=== PATIENT | male | born 1960 | race Caucasian/White ===

== ENCOUNTER 2018-06-12 15:52 | Inpatient (IN) ==
--- NOTE | 2018-06-12 17:36 | Emergency Department Note ---
Disposition Clinical Impression: Hypertensive emergency, Ureteral calculus, left, Elevated troponin, Elevated serum creatinine Disposition: Admitted As Inpatient Condition: Fair Abdominal Pain HPI - General Chief Complaint: ED Abdominal Pain Stated Complaint: Kidney stone left side Time Seen by Provider: 06/12/18 16:47 Source: patient - History of Present Illness HPI Narrative: Resident note found to have no history of present illness. I did see and it independently evaluate the patient. The history of present illness as listed below. My independent attestation follows at the end of this chart. Patient presented today for evaluation of worsening left flank pain. Patient states that he previously been evaluated at outside emergency department and had also been evaluated for stroke as he had complained of sitting epigastric patient having a sudden onset left-sided flank pain followed by numbness paresthesias and weakness. I did do request these records from the outside hospital and the patient was going to be transferred to [facility] for stroke evaluation. Patient symptoms started proximally 3 days ago. He has been known to have a kidney stone. Patient states that the pain has been significantly worse. Patient has had associated nausea. Patient states that his left leg has had intermittent episodes of significant weakness. On exam he is able to raise his foot off the bed but it does have appreciable weakness compared to the right side. The patient does have associated left-sided flank pain with associated left CVA tenderness. No significant fevers or chills. The patient will undergo further evaluation with a CT scan of his head. Last known well would have been prior to his original ED visit. The patient's kidney stone especially with pain worse with muscle movements could be relating to his left- sided weakness. CT of the abdomen and pelvis will be performed to see the potential size location of the stone. Pain Scale: 9 - Related Data Home Medications Medication Instructions Recorded Confirmed Aspirin/Acetaminophen/Caffeine 2 tab PO DAILY PRN 06/12/18 06/12/18 [Excedrin Extra Strength Caplet] Allergies Allergy/AdvReac Type Severity Reaction Status Date / Time ketorolac [From Toradol] Allergy Nausea Verified 06/12/18 16:09 Penicillins Allergy Hives Verified 06/12/18 16:09 sulfamethoxazole AdvReac Anaphylaxis Verified 06/12/18 16:09 [From Bactrim] trimethoprim [From Bactrim] AdvReac Anaphylaxis Verified 06/12/18 16:09 Abdominal Pain PMH - Past Medical History Medical history: Reports: kidney stones Male Surgical History: Reports: orthopedic, other - Social History Smoking status: Current every day smoker Alcohol use: Reports: none Drug use: Reports: none Physical Exam - General Limitations: no limitations General appearance: alert Course Vital Signs Temperature 97.6 F 06/12/18 16:09 Pulse Rate 97 06/12/18 16:09 Respiratory Rate 16 06/12/18 16:09 Blood Pressure 195/114 06/12/18 16:09 O2 Sat by Pulse Oximetry 99 06/12/18 16:09 Temperature 98.2 F 06/13/18 16:48 Pulse Rate 76 06/13/18 16:48 Respiratory Rate 18 06/13/18 16:48 Blood Pressure 150/102 06/13/18 17:39 O2 Sat by Pulse Oximetry 96 06/13/18 16:48 Oxygen Delivery Oxygen Delivery Room Air Abdominal Pain - Lab Data Result diagrams: 06/13/18 03:38 06/13/18 12:21 Lab Results 06/12/18 06/12/18 06/12/18 Range/Units 17:04 17:38 17:38 WBC 9.8 (4.3-11.1) K/mcL RBC 4.68 (4.19-5.50) M/mcL Hgb 15.0 (12.9-16.9) g/dL Hct 42.1 (37.5-50.1) % MCV 90.0 (83.0-100.0) fL MCH 32.1 (28.0-33.3) pg MCHC 35.6 H (31.6-35.5) g/dL RDW 13.6 (11.5-14.5) % Plt Count 314 (140-400) K/mcL MPV 11.0 (9.4-12.4) fL Immature Gran % 0.3 (0-4) % Seg Neutrophils % 62.1 % Lymphocytes % 26.5 % Monocytes % 7.4 % Eosinophils % 2.9 % Basophils % 0.8 % Neutrophils # 6.1 (1.6-8.9) K/mcL Lymphocytes # 2.6 (0.6-4.6) K/mcL Monocytes # 0.7 (0.0-1.3) K/mcL Eosinophils # 0.3 (0.0-0.6) K/mcL Basophils # 0.1 (0.0-0.2) K/mcL Sodium 136 (136-145) mEq/L Potassium 3.0 L (3.5-5.1) mEq/L Chloride 107 (98-107) mEq/L Carbon Dioxide 22 L (23-29) mEq/L BUN 17 (6-20) mg/dL Creatinine 1.42 H (0.70-1.30) mg/dL Est GFR ( Amer) > 60 (> 60) Est GFR (Non-Af Amer) 52 L (> 60) BUN/Creatinine Ratio 12 (6-26) Glucose 105 (70-105) mg/dL Calculated Osmolality 284 (280-300) Calcium 9.2 (8.6-10.3) mg/dL Total Bilirubin 0.4 (0.3-1.0) mg/dL Direct Bilirubin 0.1 (0.0-0.2) mg/dL Indirect Bilirubin 0.3 (0.0-1.2) mg/dL AST 15 (13-39) Units/L ALT 10 (7-52) Units/L Alkaline Phosphatase 75 (34-104) Units/L Troponin I 0.05 H* (< 0.04) ng/mL Serum Total Protein 6.7 (6.4-8.9) g/dL Albumin 3.9 (3.5-5.7) g/dL Globulin 2.8 (2.4-3.5) g/dL Albumin/Globulin Ratio 1.4 (1.1-2.2) Lipase 52 (11-82) Units/L Urine Color Yellow (Yellow) Urine Clarity Clear (Clear) Urine pH 6.0 (5.0-8.0) pH Units Ur Specific [place] 1.011 (1.010-1.025) Urine Protein >=300 H (Neg-Trace) mg/dL Urine Glucose (UA) Normal (Normal) mg/dL Urine Ketones Negative (Negative) mg/dL Urine Blood Small H (Negative) Urine Nitrite Negative (Negative) Urine Bilirubin Negative (Negative) Urine Urobilinogen Normal (Normal) mg/dL Ur Leukocyte Esterase Trace H (Negative) Urine Microscopic RBC 0-3 (0-3) per hpf Urine Microscopic WBC 0-3 (0-3) per hpf Ur Squamous Epith Cells None Seen (None-Few) per lpf Urine Bacteria None Seen (None-Few) per hpf Hyaline Casts None Seen (None-Few) per lpf Ur Culture Indicated? YES A (NO) Attestation Statement - Attestation Attestation: Resident Attestation: I examined this patient and my medical decision making was reviewed with the Resident Physician. I agree with the documented findings, disposition and treatment plan as described except to the extent set forth below. We independently had [id number] contact with the patient. Patient seen and evaluated outside hospital refer to [facility] for possible stroke. Patient states that the physician was unhappy with him but he could not go to the hospital at that time. Patient presents today for further workup and evaluation. Does have a history of kidney stone which at this time does appear to be significantly worse with muscle movements. Patient will undergo further evaluation for possible kidney stone as well as concern for the left-sided leg weakness. On evaluation the patient does have significant amounts pain. Patient is uncomfortable in the bed. He does have left-sided CVA tenderness. Abdomen has left-sided tenderness without significant rebound or guarding. CT scan shows kidney stone on the psoas. Likely explaining his symptoms of weakness. Does not discussed with urology. Patient will be brought in for pain control and further evaluation of kidney stone. See resident note for further details and disposition.
[2018-06-12 17:49] LABS: Bilirubin,Urine Negative (Negative); Blood,Urine Small (Negative); Clarity,Urine Clear (Clear); Color,Urine Yellow (Yellow); Glucose,Urine (UA) Normal (Normal); Ketones,Urine Negative (Negative); Leukocyte Esterase,Urine Trace (Negative); Nitrite,Urine Negative (Negative); Protein,Urine >=300 mg/dL (Neg-Trace); Specific Gravity,Urine 1.011 (1.010-1.025); Urobilinogen,Urine Normal (Normal)
[2018-06-12 18:10] LABS: Bacteria,Urine None Seen per hpf (None-Few); Hyaline Casts,Urine None Seen per lpf (None-Few); RBC,Urine 0-3 per hpf (0-3); Squamous Epithelial Cell,Urine None Seen per lpf (None-Few); WBC,Urine 0-3 per hpf (0-3)
[2018-06-12 18:15] LABS: Alanine Aminotransferase 10 Units/L (7-52); Albumin 3.9 g/dL (3.5-5.7); Albumin/Globulin Ratio 1.4 (1.1-2.2); Alkaline Phosphatase 75 Units/L (34-104); Aspartate Amino Transferase 15 Units/L (13-39); BUN/Creatinine Ratio 12 (6-26); Bilirubin,Direct 0.1 mg/dL (0.0-0.2); Bilirubin,Indirect 0.3 mg/dL (0.0-1.2); Bilirubin,Total 0.4 mg/dL (0.3-1.0); Blood Urea Nitrogen 17 mg/dL (6-20); Calcium 9.2 mg/dL (8.6-10.3); Carbon Dioxide 22 mEq/L (23-29); Chloride 107 mEq/L (98-107); Globulin 2.8 g/dL (2.4-3.5); Glucose 105 mg/dL (70-105); Lipase 52 Units/L (11-82); Osmolality,Calculated 284 (280-300); Sodium 136 mEq/L (136-145); Total Protein 6.7 g/dL (6.4-8.9); eGFR For Non-African Americans 52 (> 60)
[2018-06-12 18:20] LABS: Troponin I 0.05 ng/mL (< 0.04)
[2018-06-12] MEDS ORDERED: *HR* Labetalol 20 MG/4 ML SYRINGE IVP ONE (19:07)
[2018-06-12 19:12] LABS: Basophils # 0.1 K/mcL (0.0-0.2); Basophils % 0.8 %; Eosinophils # 0.3 K/mcL (0.0-0.6); Eosinophils % 2.9 %; Hematocrit 42.1 % (37.5-50.1); Immature Granulocytes % 0.3 % (0-4); Lymphocytes # 2.6 K/mcL (0.6-4.6); Lymphocytes % 26.5 %; Mean Corpuscular HGB Conc 35.6 g/dL (31.6-35.5); Mean Corpuscular Hemoglobin 32.1 pg (28.0-33.3); Monocytes # 0.7 K/mcL (0.0-1.3); Monocytes % 7.4 %; Neutrophils # 6.1 K/mcL (1.6-8.9); Platelet Count 314 K/mcL (140-400); Red Blood Count 4.68 M/mcL (4.19-5.50); Red Cell Distribution Width 13.6 % (11.5-14.5); Segmented Neutrophils % 62.1 %
[2018-06-12] MEDS ORDERED: amLODIPine 5 MG TABLET PO STA (19:45)
--- NOTE | 2018-06-12 19:47 | Emergency Department Note ---
Disposition Clinical Impression: Hypertensive emergency, Ureteral calculus, left, Elevated troponin, Elevated serum creatinine Disposition: Admitted As Inpatient Condition: Fair Referrals: NONE,PCP [Primary Care Provider] - Forms: ED Satisfaction Letter, Work/School Release Time of Disposition: 19:47 Abdominal Pain HPI - General Chief Complaint: ED Abdominal Pain Stated Complaint: Kidney stone left side Time Seen by Provider: 06/12/18 16:47 Source: patient Nursing Notes Reviewed: Yes Vital Signs Reviewed: Yes - History of Present Illness Pain Scale: 9 - Related Data Home Medications Medication Instructions Recorded Confirmed Aspirin/Acetaminophen/Caffeine 2 tab PO DAILY PRN 06/12/18 06/12/18 [Excedrin Extra Strength Caplet] Allergies Allergy/AdvReac Type Severity Reaction Status Date / Time ketorolac [From Toradol] Allergy Nausea Verified 06/12/18 16:09 Penicillins Allergy Hives Verified 06/12/18 16:09 sulfamethoxazole AdvReac Anaphylaxis Verified 06/12/18 16:09 [From Bactrim] trimethoprim [From Bactrim] AdvReac Anaphylaxis Verified 06/12/18 16:09 Abdominal Pain PMH - Past Medical History Medical history: Reports: kidney stones Male Surgical History: Reports: orthopedic, other - Social History Smoking status: Current every day smoker Alcohol use: Reports: none Drug use: Reports: none Physical Exam CONSTITUTIONAL: A&O X 3, in no apparent distress. Hypertensive on exam in the 220's/140's. HEAD: Normocephalic; atraumatic EYES: PERRL, no scleral icterus NOSE: The nose is normal in appearance without rhinorrhea NECK: No JVD or distended neck veins RESP: Normal chest excursion with respiration; breath sounds clear and equal bilaterally; no wheezes, rhonchi, or rales CARD: Regular rhythm, without murmurs, rub or gallop ABD: Non-distended; non-tender, soft, without rigidity, rebound or guarding,no pulsatile mass CHEST: No pain with palpation SKIN: Normal for age and race; warm and dry without diaphoresis ; no apparent lesions EXTREMITIES: Pulses are 2 plus and equal times 4 extremities, no peripheral edema or calf muscle pain NEUROLOGICAL: Patient is alert and oriented times three. Cranial nerves III- XII are intact. Sensory and motor functions are intact. Strength is 5/5 for flexion and extension in all 4 extremities. Patellar DTRS are equal and intact. Finger to nose testing is equal and normal bilaterally. Patient has 5/ 5 strength in the LLE. Pain with flexion of the hip against resistance. Ambulates in the room with pain that is reproduced in his abdomen. - General Limitations: no limitations General appearance: alert Course Course Narrative: Given the patient's lack of primary care and elevated blood pressure and multiple complaints at this time plan is to evaluate him for any end organ dysfunction related to his hypertension. He also undergo evaluation for kidney stone given his left sided abdominal pain. He was recently seen at an outside facility in which he underwent evaluation for his left lower extremity pain. The patient pain was reproduced with with flexion of hip against resistance. Considering this pain refers to abdomen concern is an irritating stone over the iliopsoas causing this pain, neuro-exam is otherwise intact. - Reevaluation(s) Reevaluation #1: Patient's lab work returned. His EKG was nonischemic but did show LVH. Did have an elevation of his creatinine as well as a mild elevation of troponin. His CT scan showed obstructing left-sided proximal 6.5 mm stone. I discussed the patient's case with the urologist on-call Dr. Taylor. He states he will see the patient in the morning. Discussed patient's case with the hospitalist on- call. Patient will be given 10 mg of his Labetalol IV as well as pain and nausea control. BP will be rechecked in 30 minutes and if not improving will give oral norvasc per hospitalist request. Time: 20:02 Vital Signs Temperature 97.6 F 06/12/18 16:09 Pulse Rate 97 06/12/18 16:09 Respiratory Rate 16 06/12/18 16:09 Blood Pressure 195/114 06/12/18 16:09 O2 Sat by Pulse Oximetry 99 06/12/18 16:09 Temperature 97.6 F 06/12/18 16:09 Pulse Rate 76 06/12/18 18:04 Respiratory Rate 20 06/12/18 18:04 Blood Pressure 194/120 06/12/18 18:04 O2 Sat by Pulse Oximetry 99 06/12/18 18:04 Oxygen Delivery Oxygen Delivery Room Air Abdominal Pain - Medical Records Medical records reviewed: Yes I reviewed the patient's medical records. - Lab Data Lab results reviewed: Yes I reviewed the patient's lab results. Result diagrams: 06/12/18 17:38 06/12/18 17:38 Lab Results 06/12/18 06/12/18 06/12/18 Range/Units 17:04 17:38 17:38 WBC 9.8 (4.3-11.1) K/mcL RBC 4.68 (4.19-5.50) M/mcL Hgb 15.0 (12.9-16.9) g/dL Hct 42.1 (37.5-50.1) % MCV 90.0 (83.0-100.0) fL MCH 32.1 (28.0-33.3) pg MCHC 35.6 H (31.6-35.5) g/dL RDW 13.6 (11.5-14.5) % Plt Count 314 (140-400) K/mcL MPV 11.0 (9.4-12.4) fL Immature Gran % 0.3 (0-4) % Seg Neutrophils % 62.1 % Lymphocytes % 26.5 % Monocytes % 7.4 % Eosinophils % 2.9 % Basophils % 0.8 % Neutrophils # 6.1 (1.6-8.9) K/mcL Lymphocytes # 2.6 (0.6-4.6) K/mcL Monocytes # 0.7 (0.0-1.3) K/mcL Eosinophils # 0.3 (0.0-0.6) K/mcL Basophils # 0.1 (0.0-0.2) K/mcL Sodium 136 (136-145) mEq/L Potassium 3.0 L (3.5-5.1) mEq/L Chloride 107 (98-107) mEq/L Carbon Dioxide 22 L (23-29) mEq/L BUN 17 (6-20) mg/dL Creatinine 1.42 H (0.70-1.30) mg/dL Est GFR ( Amer) > 60 (> 60) Est GFR (Non-Af Amer) 52 L (> 60) BUN/Creatinine Ratio 12 (6-26) Glucose 105 (70-105) mg/dL Calculated Osmolality 284 (280-300) Calcium 9.2 (8.6-10.3) mg/dL Total Bilirubin 0.4 (0.3-1.0) mg/dL Direct Bilirubin 0.1 (0.0-0.2) mg/dL Indirect Bilirubin 0.3 (0.0-1.2) mg/dL AST 15 (13-39) Units/L ALT 10 (7-52) Units/L Alkaline Phosphatase 75 (34-104) Units/L Troponin I 0.05 H* (< 0.04) ng/mL Serum Total Protein 6.7 (6.4-8.9) g/dL Albumin 3.9 (3.5-5.7) g/dL Globulin 2.8 (2.4-3.5) g/dL Albumin/Globulin Ratio 1.4 (1.1-2.2) Lipase 52 (11-82) Units/L Urine Color Yellow (Yellow) Urine Clarity Clear (Clear) Urine pH 6.0 (5.0-8.0) pH Units Ur Specific [place] 1.011 (1.010-1.025) Urine Protein >=300 H (Neg-Trace) mg/dL Urine Glucose (UA) Normal (Normal) mg/dL Urine Ketones Negative (Negative) mg/dL Urine Blood Small H (Negative) Urine Nitrite Negative (Negative) Urine Bilirubin Negative (Negative) Urine Urobilinogen Normal (Normal) mg/dL Ur Leukocyte Esterase Trace H (Negative) Urine Microscopic RBC 0-3 (0-3) per hpf Urine Microscopic WBC 0-3 (0-3) per hpf Ur Squamous Epith Cells None Seen (None-Few) per lpf Urine Bacteria None Seen (None-Few) per hpf Hyaline Casts None Seen (None-Few) per lpf Ur Culture Indicated? YES A (NO) - Radiology Data Radiology results reviewed: Yes I reviewed the patient's radiology results. Abdomen/Pelvis CT 06/12/18 17:07 IMPRESSION: 6.0 x 7.5 mm obstructing calculus within the proximal left ureter. Multiple additional bilateral nephrolithiasis. Borderline prominent appendix without surrounding inflammatory change to suggest acute appendicitis. Mild generalized bladder wall thickening. Correlation with urinalysis suggested. Diverticulosis without evidence for acute diverticulitis. D/ / Jeremiah Whalen MD / Jeremiah Whalen MD Interpreting Provider: Jeremiah Whalen MD Chest X-Ray 06/12/18 17:07 IMPRESSION: No acute process. D/ / Roberta Vargas MD / Roberta Vargas MD Interpreting Provider: Roberta Vargas MD Head CT 06/12/18 17:07 IMPRESSION: No acute intracranial abnormality. Chronic bilateral basal ganglia lacunar infarctions are identified. No obvious loss of jimenez/white matter differentiation, however if there is high clinical suspicion for CVA, further evaluation with MRI should be considered. D/ / Jeremiah Whalen MD / Jeremiah Whalen MD Interpreting Provider: Jeremiah Whalen MD - EKG Data EKG attestation: Yes I reviewed and interpreted this EKG. EKG results narrative: EKG done at 17:11 shows sinus rhythm at rate of 84 bpm. Normal axis. LVH. No signs of ischemia.
[2018-06-12] MEDS ORDERED: Ondansetron 4 MG/2 ML VIAL IVP ONE (19:56)
[2018-06-12] MEDS ORDERED: *HR* FentaNYL (PF) 100 MCG/2 ML VIAL IVP ONE (19:56)
--- NOTE | 2018-06-12 21:11 | Internal Med History&Physical ---
Date of Encounter: 06/12/18 Time of Encounter: 21:09 Internal Medicine - H&P: HPI Chief complaint: left falnk pain, chest pain Admitted From: Emergency Dept Plans for Post Hospital Care: Home History of present illness: Mr. Gomez is a 57 year old male Patient with history of known kidney stone for several years, hypertension, smoking history, and patient has had left flank pain since February but became worse in the last 3 days with some nausea no vomiting also had mild chest pain and shortness of breath the patient came to the emergency room In the emergency room he was very hypertensive blood pressure 200/140 given labetalol the chest pain is resolved EKG is nonspecific evaluations with CT and x-ray shows a kidney stone. Left that is obstructive [address] Pelayo urology has been consulted will see patient in a.m. troponin was also mildly elevated 0.05 creatinine 1.4 of acute kidney injury patient be admitted for treatment of multiple medical issues include hypertensive urgency , kidney stone , acute kidney injury also has severe hypokalemia potassium at 3.0. Patient states he was told that he has fluid around his heart had does not understand detail whether had congestive heart failure or pericardial effusion will check a 2-D echo however Past Med Surg Social Fam HX - Past Medical History Medical history: hypertension, kidney stones - Social History Smoking Status: Current every day smoker Smokeless Tobacco Status: No Alcohol use: none Drug use: none Internal Medicine - H&P: Meds Aspirin/Acetaminophen/Caffeine [Excedrin Extra Strength Caplet] 2 tab PO DAILY PRN 06/12/18 [History] 3 Allergy/AdvReac Type Severity Reaction Status Date / Time ketorolac [From Toradol] Allergy Nausea Verified 06/12/18 16:09 Penicillins Allergy Hives Verified 06/12/18 16:09 sulfamethoxazole AdvReac Anaphylaxis Verified 06/12/18 16:09 [From Bactrim] trimethoprim [From Bactrim] AdvReac Anaphylaxis Verified 06/12/18 16:09 All Systems PM: A 10-system review of systems was performed and is negative for pertinent findings except as documented above in the HPI. - Constitutional Vitals: Temp Pulse Resp BP Pulse Ox 97.6 F 77 18 193/113 98 06/12/18 16:09 06/12/18 20:21 06/12/18 20:21 06/12/18 20:21 06/12/18 20:21 General appearance: Present: A&O X 3 Exam: done - Head Head exam: Present: atraumatic, normocephalic - Eye Eye exam: Present: PERRL, conjuntiva pink, sclera anicteric Pupils: Present: PERRL - Neck Neck exam general surgery: Present: supple, trachea midline. Absent: lymphadenopathy - Respiratory Respiratory exam: Present: CTAB. Absent: accessory muscle use, rales, rhonchi, wheezes - Cardiovascular Cardiovascular exam: Present: RRR, +S1, +S2. Absent: diastolic murmur, gallop, rubs, systolic murmur - GI/Abdominal GI/Abdominal exam: Present: tenderness - Extremities Exam Extremities exam: Present: warm, radial pulses palpable and symmetrical. Absent : calf tenderness, cyanotic, pedal edema Internal Med - H&P Results - Labs CBC & Chem 7: 06/12/18 17:38 06/12/18 17:38 - Assessment and plan (1) Hypokalemia Current Visit: Yes Status: Acute Assessment and plan: will replace given hypertensive urgency may be concern for hyperaldosteronism (2) EDGARDO (acute kidney injury) Current Visit: Yes Status: Acute Assessment and plan: Likely contribution of kidney stone hydronephrosis and dehydration started on normal saline IV hydration (3) Hypertensive urgency Current Visit: Yes Status: Acute Assessment and plan: Patient does not go to the doctor was started him on Norvasc 10 mg once a day (4) Elevated serum creatinine Current Visit: Yes Status: Acute Assessment and plan: Likely due to dehydration (5) Elevated troponin Current Visit: Yes Status: Acute Assessment and plan: Patient has mild chest pain and mildly elevated troponin With trend troponin and obtain 2-D echo in a.m. (6) Ureteral calculus, left Current Visit: Yes Status: Acute Assessment and plan: urology has been consult will see patient in a.m. - Time Spent With Patient Total time spent is greater than 50% in coordination of care (as documented) at patient's floor/unit and/or counseling patient:
[2018-06-12] MEDS ORDERED: traMADol 50 MG TABLET PO PRN (21:21)
[2018-06-12] MEDS ORDERED: Naloxone 0.4 MG/ML INJ IVP PRN (21:21)
[2018-06-12] MEDS ORDERED: Acetaminophen 325 MG TABLET PO PRN (21:21)
[2018-06-12] MEDS ORDERED: Acetaminophen/Aspirin/Caffeine TABLET PO PRN (21:25)
[2018-06-12] MEDS: 0.9 % Sodium Chloride 1,000 ML IVC SCH (23:23)
[2018-06-13 03:55] LABS: Hemoglobin 14.1 g/dL (12.9-16.9); Mean Corpuscular HGB Conc 35.3 g/dL (31.6-35.5); Mean Corpuscular Hemoglobin 30.9 pg (28.0-33.3); Mean Corpuscular Volume 87.5 fL (83.0-100.0); Mean Platelet Volume 10.4 fL (9.4-12.4); Platelet Count 299 K/mcL (140-400); Red Blood Count 4.57 M/mcL (4.19-5.50); Red Cell Distribution Width 13.7 % (11.5-14.5)
[2018-06-13 05:30] LABS: Alanine Aminotransferase 9 Units/L (7-52); Albumin 3.7 g/dL (3.5-5.7); Albumin/Globulin Ratio 1.4 (1.1-2.2); Alkaline Phosphatase 75 Units/L (34-104); Aspartate Amino Transferase 13 Units/L (13-39); BUN/Creatinine Ratio 13 (6-26); Bilirubin,Total 0.4 mg/dL (0.3-1.0); Blood Urea Nitrogen 16 mg/dL (6-20); Calcium 8.8 mg/dL (8.6-10.3); Carbon Dioxide 20 mEq/L (23-29); Chloride 109 mEq/L (98-107); Chol/HDL Ratio 6.3 (0-4.9); Cholesterol 260 mg/dL (< 200); Globulin 2.7 g/dL (2.4-3.5); Glucose 151 mg/dL (70-105); HDL Cholesterol 41 mg/dL (40-59); LDL Cholesterol,Calculated 171 mg/dL (0-99); Magnesium 1.8 mg/dL (1.6-2.6); Osmolality,Calculated 290 (280-300); Potassium 2.8 mEq/L (3.5-5.1); Sodium 138 mEq/L (136-145); Total Protein 6.4 g/dL (6.4-8.9); Triglycerides 239 mg/dL (< 150); eGFR For Non-African Americans > 60 (> 60)
[2018-06-13] MEDS: *HR* Enoxaparin 40 MG/0.4 ML SYRINGE SQ SCH (05:46)
[2018-06-13] MEDS: amLODIPine 5 MG TABLET PO SCH (07:43)
[2018-06-13] MEDS: 0.9 % Sodium Chloride 1,000 ML IVC SCH (07:48)
[2018-06-13] MEDS: Ondansetron 4 MG/2 ML VIAL IVP PRN (09:12)
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
[2018-06-13] MEDS ORDERED: OXYCODONE Oral CONC 10 MG/0.5 ML ORAL.SYG SL ONE ×2 (11:40→20:48)
--- NOTE | 2018-06-13 11:42 | Internal Med Progress Note ---
Hospitalist Progress Note - Encounter Date of Encounter: 06/13/18 Time of Encounter: 11:39 - Subjective Interval History: 57 M admitted for HTN emergency with EDGARDO and elevated troponin Incidental finding of obstructive uropathy on admission Seen and examined at the bedside He is complaining of pressure like chest pain, nausea and headache, he is also complaining of flank pain - Exam Vitals: Temp Pulse Resp BP Pulse Ox 97.8 F 87 18 154/118 95 06/13/18 07:27 06/13/18 07:27 06/13/18 07:27 06/13/18 09:21 06/13/18 07:27 Exam: Gen.: Mild painful distress, alert and oriented 3 ENT: Mucosal membranes moist Respiratory: Lungs are clear to auscultation bilaterally without any wheezing rhonchi or rales Cardiovascular: Normal S1 and S2 regular rate rhythm no murmurs rubs or gallops Abdomen: Soft, non-tender and non-distended with positive bowel sounds Extremities: No lower extremity edema Neuro: AAOX3, no speech deficits, no facial paralysis, moves all limbs spontaneously Skin: No rash/jaundice - Assessment and Plan (1) EDGARDO (acute kidney injury) Current Visit: Yes Status: Acute Assessment and Plan: Pre-renal and pos-renal Due to Uncontrolled HTN and L obstructing uropathy Improving D/C IVF, encourage liberal fluid hydration Continue to monitor Avoid nephrotoxins (2) Elevated troponin Current Visit: Yes Status: Acute Assessment and Plan: Likely due to demand from HTN emergency Trop 0.06 X3, no EKG changes Continue ASA, Lipitor ECHO showed LVEF 60%,LVH, o valvular dysfunction and normal wall segments Continue BP control (3) Hydronephrosis, left Current Visit: Yes Status: Acute Assessment and Plan: Patient seen by urologist, and likely refusing procedure Will follow urology recommendations (4) Hypertensive emergency Current Visit: Yes Status: Acute Assessment and Plan: Improving Continue Norvasc and Metoprolol Presented with SBP >200, DBP >130 with EDGARDO and elevated troponin Continue to monitor (5) Ureteral calculus, left Current Visit: Yes Status: Acute Assessment and Plan: Management per urology (6) HLD (hyperlipidemia) Current Visit: Yes Status: Acute Assessment and Plan: Start on lipitor, continue to monitor (7) Tobacco abuse Current Visit: Yes Status: Acute Assessment and Plan: cessation counselling - Time Spent with Patient Total time spent is greater than 50% in coordination of care (as documented) at patient's floor/unit and/or counseling patient: Plan of Care Discussed with: patient Internal Medicine: Result - Labs CBC & Chem 7: 06/13/18 03:38 06/13/18 03:38 Labs: Short CBC 06/13/18 Range/Units 03:38 WBC 9.1 (4.3-11.1) K/mcL Hgb 14.1 (12.9-16.9) g/dL Hct 40.0 (37.5-50.1) % Plt Count 299 (140-400) K/mcL BMP 06/13/18 03:38 Sodium 138 Potassium 2.8 L Chloride 109 H Carbon Dioxide 20 L BUN 16 Creatinine 1.20 Glucose 151 H Calcium 8.8 Cardiac Enzymes 06/12/18 06/13/18 Range/Units 21:49 03:38 Troponin I 0.05 H* 0.06 H* (< 0.04) ng/mL Liver Function 06/13/18 Range/Units 03:38 Total Bilirubin 0.4 (0.3-1.0) mg/dL AST 13 (13-39) Units/L ALT 9 (7-52) Units/L Alkaline Phosphatase 75 (34-104) Units/L Albumin 3.7 (3.5-5.7) g/dL - Impressions Impressions Echocardiogram 06/13/18 07:00 Impressions: LVEF 60%. Normal LV chamber size and function. Mild left ventricular diastolic dysfunction. Mild to moderate concentric left ventricular hypertrophy. Normal right ventricular structure and function. Unable to estimate RVSP due to lack of TR jet. No significant valvular dysfunction. Left Ventricular Wall Motion: Rest Echo Findings All wall segments showed normal motion. Findings: Study Quality * Technically adequate exam. ECG Findings * Normal sinus rhythm. Left Ventricle * LVEF 60%. * Normal LV chamber size and function. * Mild left ventricular diastolic dysfunction. * Mild to moderate concentric left ventricular hypertrophy. Right Ventricle * Normal right ventricular structure and function. Left Atrium * Normal left atrial size. Right Atrium * Normal right atrial size. Aortic Valve * Aortic valve not well visualized. * No aortic stenosis. * Trace aortic regurgitation. Mitral Valve * Normal mitral valve structure and function. * No mitral regurgitation. * No mitral stenosis. Tricuspid Valve * Normal tricuspid valve structure and function. * No tricuspid regurgitation. * Unable to estimate RVSP due to lack of TR jet. Pulmonic Valve * Normal pulmonic valve structure and function. * No pulmonic regurgitation. Aorta * Normally sized aortic root. Pericardium * There is a trivial pericardial effusion present. IVC * Normal IVC dimensions and inspiratory collapse. Pulmonary Artery * Normal visualized portions of the main pulmonary artery. Consult Discharge Plan - Plan Referrals: Hector Birmingham DO [Partnered Physician] - 06/21/18 1:00 pm (6) HLD (hyperlipidemia) Qualifiers: Hyperlipidemia type: unspecified Qualified Code(s): E78.5 - Hyperlipidemia, unspecified
[2018-06-13 13:01] LABS: BUN/Creatinine Ratio 12 (6-26); Blood Urea Nitrogen 14 mg/dL (6-20); Carbon Dioxide 21 mEq/L (23-29); Chloride 110 mEq/L (98-107); Glucose 133 mg/dL (70-105); Osmolality,Calculated 288 (280-300); Potassium 3.4 mEq/L (3.5-5.1); Sodium 138 mEq/L (136-145); eGFR For Non-African Americans > 60 (> 60)
[2018-06-13 13:03] LABS: Troponin I 0.05 ng/mL (< 0.04)
[2018-06-13] MEDS: Aspirin Enteric Coated 81 MG Tablet PO SCH (16:36)
[2018-06-13] MEDS: Nicotine 21 MG PATCH.TD24 TD SCH (16:38)
--- NOTE | 2018-06-13 17:59 | Electrocardiograph Report ---
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
[2018-06-14 01:38] LABS: BUN/Creatinine Ratio 12 (6-26); Blood Urea Nitrogen 15 mg/dL (6-20); Calcium 9.1 mg/dL (8.6-10.3); Carbon Dioxide 24 mEq/L (23-29); Chloride 107 mEq/L (98-107); Glucose 170 mg/dL (70-105); Osmolality,Calculated 287 (280-300); Potassium 3.3 mEq/L (3.5-5.1); Sodium 136 mEq/L (136-145); eGFR For Non-African Americans 58 (> 60)
[2018-06-14] MEDS: *HR* Enoxaparin 40 MG/0.4 ML SYRINGE SQ SCH (05:31)
[2018-06-14] MEDS: Ondansetron 4 MG/2 ML VIAL IVP PRN (05:37)
--- NOTE | 2018-06-14 07:17 | Urology Progress Note ---
Date of Encounter: 06/14/18 Time of Encounter: 07:16 - Assessment and Plan (1) Hydronephrosis, left Current Visit: Yes Status: Acute Assessment and plan: to OR today for stone extraction (2) Left flank pain Current Visit: Yes Status: Acute (3) Hypertensive emergency Current Visit: Yes Status: Acute (4) Ureteral calculus, left Current Visit: Yes Status: Acute Progress Note Narrative: Patient seen. with some nausea. pain well controlled. Objective Initial Vital Signs Temp Pulse Resp BP Pulse Ox 97.6 F 97 16 195/114 99 06/12/18 16:09 06/12/18 16:09 06/12/18 16:09 06/12/18 16:09 06/12/18 16:09 - General physical appearance Present: well developed, well nourished - Abdomen Present: soft - Labs 06/13/18 03:38 06/14/18 01:05 Diabetes panel 06/13/18 06/14/18 Range/Units 12:21 01:05 Sodium 138 136 (136-145) mEq/L Potassium 3.4 L 3.3 L (3.5-5.1) mEq/L Chloride 110 H 107 (98-107) mEq/L Carbon Dioxide 21 L 24 (23-29) mEq/L BUN 14 15 (6-20) mg/dL Creatinine 1.16 1.28 (0.70-1.30) mg/dL Glucose 133 H 170 H (70-105) mg/dL Calcium 9.0 9.1 (8.6-10.3) mg/dL Calcium panel 06/13/18 06/14/18 Range/Units 12:21 01:05 Calcium 9.0 9.1 (8.6-10.3) mg/dL Pituitary panel 06/13/18 06/14/18 Range/Units 12:21 01:05 Sodium 138 136 (136-145) mEq/L Potassium 3.4 L 3.3 L (3.5-5.1) mEq/L Chloride 110 H 107 (98-107) mEq/L Carbon Dioxide 21 L 24 (23-29) mEq/L BUN 14 15 (6-20) mg/dL Creatinine 1.16 1.28 (0.70-1.30) mg/dL Glucose 133 H 170 H (70-105) mg/dL Calcium 9.0 9.1 (8.6-10.3) mg/dL Adrenal panel 06/13/18 06/14/18 Range/Units 12:21 01:05 Sodium 138 136 (136-145) mEq/L Potassium 3.4 L 3.3 L (3.5-5.1) mEq/L Chloride 110 H 107 (98-107) mEq/L Carbon Dioxide 21 L 24 (23-29) mEq/L BUN 14 15 (6-20) mg/dL Creatinine 1.16 1.28 (0.70-1.30) mg/dL Glucose 133 H 170 H (70-105) mg/dL Calcium 9.0 9.1 (8.6-10.3) mg/dL Consult Discharge Plan - Plan Referrals: Hector Birmingham DO [Partnered Physician] - 06/21/18 1:00 pm
[2018-06-14] MEDS: Nicotine 21 MG PATCH.TD24 TD SCH (07:48)
[2018-06-14] MEDS: Aspirin Enteric Coated 81 MG Tablet PO SCH (07:56)
[2018-06-14] MEDS: amLODIPine 5 MG TABLET PO SCH (07:56)
--- NOTE | 2018-06-14 08:59 | Internal Med Progress Note ---
Hospitalist Progress Note - Encounter Date of Encounter: 06/14/18 Time of Encounter: 08:58 - Subjective Interval History: 57 M admitted for HTN emergency with EDGARDO and elevated troponin Incidental finding of obstructive uropathy on admission Seen and examined at the bedside Blood pressure is very much controlled now, pain is controlled Awaiting stone extraction by Urine culture is negative with no growth EDGARDO has resolved - Exam Vitals: Temp Pulse Resp BP Pulse Ox 97.8 F 79 16 144/79 93 06/14/18 06:52 06/14/18 06:52 06/14/18 06:52 06/14/18 06:52 06/14/18 06:52 Exam: Gen.: No acute distress, alert and oriented 3 ENT: Mucosal membranes moist Respiratory: Lungs are clear to auscultation bilaterally without any wheezing rhonchi or rales Cardiovascular: Normal S1 and S2 regular rate rhythm no murmurs rubs or gallops Abdomen: Soft, non-tender and non-distended with positive bowel sounds Extremities: No lower extremity edema Neuro: AAOX3, no speech deficits, no facial paralysis, moves all limbs spontaneously Skin: No rash/jaundice - Assessment and Plan (1) EDGARDO (acute kidney injury) Current Visit: Yes Status: Acute Assessment and Plan: Pre-renal and post-renal Due to Uncontrolled HTN and L obstructing uropathy Improved Continue to monitor Avoid nephrotoxins (2) Elevated troponin Current Visit: Yes Status: Acute Assessment and Plan: Likely due to demand from HTN emergency Trop 0.06 X3, no EKG changes Continue ASA, Lipitor ECHO showed LVEF 60%,LVH, o valvular dysfunction and normal wall segments Continue BP control (3) Hydronephrosis, left Current Visit: Yes Status: Acute Assessment and Plan: Patient seen by urologist For stone extraction today (4) Hypertensive emergency Current Visit: Yes Status: Acute Assessment and Plan: Improving Continue Norvasc and Metoprolol Presented with SBP >200, DBP >130 with EDGARDO and elevated troponin Continue to monitor (5) Ureteral calculus, left Current Visit: Yes Status: Acute Assessment and Plan: Management per urology (6) HLD (hyperlipidemia) Current Visit: Yes Status: Chronic Assessment and Plan: Continue lipitor (7) Tobacco abuse Current Visit: Yes Status: Chronic Assessment and Plan: cessation counselling , declined NRT (8) Hypokalemia Current Visit: Yes Status: Acute Assessment and Plan: replaced po, continue to monitor Check Mag - Time Spent with Patient Total time spent is greater than 50% in coordination of care (as documented) at patient's floor/unit and/or counseling patient: Plan of Care Discussed with: patient Internal Medicine: Result - Labs CBC & Chem 7: 06/13/18 03:38 06/14/18 01:05 Labs: BMP 06/13/18 06/14/18 12:21 01:05 Sodium 138 136 Potassium 3.4 L 3.3 L Chloride 110 H 107 Carbon Dioxide 21 L 24 BUN 14 15 Creatinine 1.16 1.28 Glucose 133 H 170 H Calcium 9.0 9.1 Cardiac Enzymes 06/13/18 Range/Units 12:21 Troponin I 0.05 H* (< 0.04) ng/mL - Impressions Impressions Echocardiogram 06/13/18 07:00 Impressions: LVEF 60%. Normal LV chamber size and function. Mild left ventricular diastolic dysfunction. Mild to moderate concentric left ventricular hypertrophy. Normal right ventricular structure and function. Unable to estimate RVSP due to lack of TR jet. No significant valvular dysfunction. Left Ventricular Wall Motion: Rest Echo Findings All wall segments showed normal motion. Findings: Study Quality * Technically adequate exam. ECG Findings * Normal sinus rhythm. Left Ventricle * LVEF 60%. * Normal LV chamber size and function. * Mild left ventricular diastolic dysfunction. * Mild to moderate concentric left ventricular hypertrophy. Right Ventricle * Normal right ventricular structure and function. Left Atrium * Normal left atrial size. Right Atrium * Normal right atrial size. Aortic Valve * Aortic valve not well visualized. * No aortic stenosis. * Trace aortic regurgitation. Mitral Valve * Normal mitral valve structure and function. * No mitral regurgitation. * No mitral stenosis. Tricuspid Valve * Normal tricuspid valve structure and function. * No tricuspid regurgitation. * Unable to estimate RVSP due to lack of TR jet. Pulmonic Valve * Normal pulmonic valve structure and function. * No pulmonic regurgitation. Aorta * Normally sized aortic root. Pericardium * There is a trivial pericardial effusion present. IVC * Normal IVC dimensions and inspiratory collapse. Pulmonary Artery * Normal visualized portions of the main pulmonary artery. Consult Discharge Plan - Plan Referrals: Hector Birmingham DO [Partnered Physician] - 06/21/18 1:00 pm (6) HLD (hyperlipidemia) Qualifiers: Hyperlipidemia type: unspecified Qualified Code(s): E78.5 - Hyperlipidemia, unspecified
[2018-06-14] MEDS ORDERED: Ondansetron 4 MG/2 ML VIAL ONE (14:29)
[2018-06-14] MEDS ORDERED: Lidocaine -MPF 2% 2 ML VIAL ONE (14:29)
[2018-06-14] MEDS ORDERED: Dexamethasone 4 MG/ML VIAL ONE (14:29)
[2018-06-14] MEDS ORDERED: Ketorolac 30 MG/ML VIAL ONE (14:29)
[2018-06-14] MEDS ORDERED: *HR* FentaNYL (PF) 100 MCG/2 ML VIAL ONE ×2 (14:30→15:50)
[2018-06-14] MEDS ORDERED: *HR* Propofol 200 MG/20 ML VIAL IVP ONE (14:30)
[2018-06-14] MEDS ORDERED: *HR* Midazolam HCl 2 MG/2 ML VIAL ONE (14:30)
[2018-06-14] MEDS ORDERED: *HR* OxyCODONE Immed Rel 5 MG TABLET PO PRN (14:52)
[2018-06-14] MEDS ORDERED: *HR* Meperidine 25 MG/ML SYRINGE IVP PRN (14:52)
[2018-06-14] MEDS ORDERED: *HR* Promethazine 25 MG/ML VIAL IVP PRN (14:52)
[2018-06-14] MEDS ORDERED: traMADol 50 MG TABLET PO PRN (14:52)
[2018-06-14] MEDS ORDERED: Albuterol 2.5 MG/3 ML NEBULIZER IH ONE (16:01)
--- NOTE | 2018-06-14 16:04 | Anesthesia Evaluation PreOp ---
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 TRIMMER History: Denies Any Significant HX Other Medical History: Denies Any Significant HX Anesthesia History: No Prior Anesthetic Complications Alcohol Use: none Drug use: none Medications and Allergies Aspirin/Acetaminophen/Caffeine [Excedrin Extra Strength Caplet] 2 tab PO DAILY PRN 06/12/18 [History] 3 Allergy/AdvReac Type Severity Reaction Status Date / Time ketorolac [From Toradol] Allergy Nausea Verified 06/12/18 16:09 Penicillins Allergy Hives Verified 06/12/18 16:09 sulfamethoxazole AdvReac Anaphylaxis Verified 06/12/18 16:09 [From Bactrim] trimethoprim [From Bactrim] AdvReac Anaphylaxis Verified 06/12/18 16:09 - Meds/Allergy Pre-op Review Medications Reviewed: Yes Allergies Reviewed: Yes Beta Blockers on Current Med List: No Anesthesia Results - Labs 06/13/18 03:38 06/14/18 11:18 Laboratory Tests 06/13/18 06/14/18 06/14/18 03:38 01:05 11:18 Hgb 14.1 Hct 40.0 Plt Count 299 Sodium 136 Potassium 4.0 BUN 15 Creatinine 1.28 - Imaging Additional studies: EF 60% Anesthesia Exam Vital Signs/O2 Sat/Glucose, Most Current Pulse BP 06/14/18 13:00 67 06/14/18 12:05 143/84 Height: 5'8 Weight: 133 lbs NPO (# of Hours): MN Pain Scale: 0 - HEENT Pupil (Motor): Pupils equal, EOMI Mallampati: III Teeth: Edentulous Oral Opening: Less than or equal to 3 - THREAD TRIMMER LOC: Oriented THREAD TRIMMER Motor: Normal RUE, Normal LUE, Normal RLE, Normal LLE, Normal Face THREAD TRIMMER Sensory: Normal: RUE, LUE, RLE, LLE, Face - Cardiac Rhythm: Regular Murmur: None JVD: No Carotid Bruit: No - Pulmonary Breath Sounds: bilateral Clear Respiratory Effort: Symmetrical Anesthesia Assess/Plan ASA Score: 2 ( Tobacco HTN) Modified [place] Scale for Level of Consciousness: Cooperative, oriented, and tranquil Anesthetic Plan: General Monitoring Plan: Standard Monitors Recovery Plan: PACU (Discussed GA, agrees to proceed)
[2018-06-14] MEDS ORDERED: Clindamycin 900 MG/50 ML 900 MG/50 ML IV.SOLN IVPB ONE (16:40)
--- NOTE | 2018-06-14 17:19 | Operative Note ---
Date of procedure: 06/14/18 Pre-op diagnosis: left upj stone Post-op diagnosis: same Procedure: Left ureteroscopic laser lithotripsy of stone, left ureteroscopic basket retrieval of stone fragment, left 4.8 x 28 cm ureteral stent placement Anesthesia: MIKE Surgeon: Augustin Sahni Was there an resident programs assistant present: No Estimated blood loss (cc): 0 Specimen: left renal stone Condition: stable Disposition: PACU Procedure in Detail: Patient was prepped and draped in normal sterile fashion. Timeout procedure performed. I then inserted the cystoscope into the patient's bladder. I was able to cannulate the left ureteral orifice using a sensor wire. This was advanced into the patient's left kidney. I could visualize left UPJ stone on fluoroscopy. I then placed a 11 x 13 x 46 cm access sheath into the left kidney. I then placed the flexible ureteroscope into the left kidney. I then using holmium laser to fragment the stone into multiple pieces. I then proceeded to fragment each other stone that was seen in each calyx throughout the kidney. All the stone fragments were smaller than 1 mm. I then placed a sensor wire back into the left kidney and placed a 4.8 x 28 cm stent with good curl seen in the left kidney and in the bladder. A string was left for easy removal in 2-3 days.
--- NOTE | 2018-06-14 17:20 | Event Note ---
Date of Encounter: 06/14/18 Time of Encounter: 17:20 Patient okay to discharge from urology standpoint. Patient to remove stent in 2 -3 days. Appointment in 3-4 weeks.
--- NOTE | 2018-06-14 17:55 | Anesthesia Evaluation Post Op ---
Date of Encounter: 06/14/18 Time of Encounter: 18:00 - Vital Signs Vital Signs: Vital Signs/O2 Sat/Glucose, Most Current Temp Pulse Resp BP Pulse Ox 06/14/18 17:44 80 16 163/103 98 06/14/18 17:34 86 16 158/92 99 06/14/18 17:24 98.7 F 98 16 152/75 97 - Lungs Lungs: Clear Ascult./Percussion - Airway Airway: Non-obstructed - Cardiovascular Regular Rate - Mental Status Mental Status: Alert & Oriented, Answers Appropriately - Pain Pain Scale: 1 - Nausea Vomiting Nausea Vomiting: Not Present - Hydration Hydration: Ice chips - Discharge PostOp Status: Transfer Patient to floor
[2018-06-14] MEDS ORDERED: Naloxone 0.4 MG/ML INJ IVP PRN (20:06)
[2018-06-14] MEDS ORDERED: Acetaminophen/Aspirin/Caffeine TABLET PO PRN (20:06)
[2018-06-14] MEDS ORDERED: Acetaminophen 325 MG TABLET PO PRN (20:06)
[2018-06-14] MEDS: traMADol 50 MG TABLET PO PRN (21:45)
[2018-06-15 04:15] LABS: Calcium 9.4 mg/dL (8.6-10.3); Potassium 4.4 mEq/L (3.5-5.1)
[2018-06-15] MEDS: traMADol 50 MG TABLET PO PRN ×2 (04:27→12:49)
[2018-06-15] MEDS: Ondansetron 4 MG/2 ML VIAL IVP PRN ×2 (04:32→12:50)
[2018-06-15] MEDS: *HR* Enoxaparin 40 MG/0.4 ML SYRINGE SQ SCH (04:32)
[2018-06-15] MEDS ORDERED: 0.9 % Sodium Chloride 1,000 ML IVC ONE (07:48)
[2018-06-15 08:09] LABS: Estimated Average Glucose 137 mg/dl; Hemoglobin A1C 6.4 %
[2018-06-15] MEDS: amLODIPine 5 MG TABLET PO SCH (08:44)
[2018-06-15] MEDS: Nicotine 21 MG PATCH.TD24 TD SCH (08:45)
--- NOTE | 2018-06-15 10:42 | Internal Med Progress Note ---
Hospitalist Progress Note - Encounter Date of Encounter: 06/15/18 Time of Encounter: 10:41 - Subjective Interval History: 57 M admitted for HTN emergency with EDGARDO and elevated troponin Incidental finding of obstructive uropathy on admission Seen and examined at the bedside POD 1 s/p stone extraction by Renal function worse this a.m, however patient states hx of CKD and is asymptomatic Elevated blood sugars, A1C ordered and pending - Exam Vitals: Temp Pulse Resp BP Pulse Ox 97.7 F 84 16 174/106 96 06/15/18 07:00 06/15/18 07:00 06/15/18 07:00 06/15/18 07:00 06/15/18 07:00 Exam: Gen.: No acute distress, alert and oriented 3 ENT: Mucosal membranes moist Respiratory: Lungs are clear to auscultation bilaterally without any wheezing rhonchi or rales Cardiovascular: Normal S1 and S2 regular rate rhythm no murmurs rubs or gallops Abdomen: Soft, non-tender and non-distended with positive bowel sounds Extremities: No lower extremity edema Neuro: AAOX3, no speech deficits, no facial paralysis, moves all limbs spontaneously Skin: No rash/jaundice - Assessment and Plan (1) EDGARDO (acute kidney injury) Current Visit: Yes Status: Acute Assessment and Plan: Pre-renal and post-renal Due to Uncontrolled HTN and L obstructing uropathy Given IVF hydration Continue to monitor Avoid nephrotoxins (2) Elevated troponin Current Visit: Yes Status: Acute Assessment and Plan: Likely due to demand from HTN emergency Trop 0.06 X3, no EKG changes Discontinue ASA Continue Lipitor ECHO showed LVEF 60%,LVH, o valvular dysfunction and normal wall segments Continue BP control (3) Hydronephrosis, left Current Visit: Yes Status: Acute Assessment and Plan: Patient seen by urologist POD 1 s/p stone extraction Patient's pain is controlled Start on percocert prn (4) Hypertensive emergency Current Visit: Yes Status: Acute Assessment and Plan: Improving Presented with SBP >200, DBP >130 with EDGARDO and elevated troponin Continue Norvasc and Metoprolol Patient will need PCP established prior to discharge, continue to monitor (5) Ureteral calculus, left Current Visit: Yes Status: Acute Assessment and Plan: Management per urology (6) HLD (hyperlipidemia) Current Visit: Yes Status: Chronic Assessment and Plan: Continue lipitor (7) Tobacco abuse Current Visit: Yes Status: Chronic Assessment and Plan: cessation counselling , declined NRT (8) Hypokalemia Current Visit: Yes Status: Resolved Assessment and Plan: Resolved (9) Hyperglycemia Current Visit: Yes Status: Acute Assessment and Plan: A1C 6.4 Sliding scale insulin Lifestyle modification encouraged - Time Spent with Patient Total time spent is greater than 50% in coordination of care (as documented) at patient's floor/unit and/or counseling patient: Plan of Care Discussed with: patient Internal Medicine: Result - Labs CBC & Chem 7: 06/13/18 03:38 06/15/18 03:35 Labs: BMP 06/14/18 06/15/18 11:18 03:35 Sodium 129 L Potassium 4.0 4.4 Chloride 102 Carbon Dioxide 20 L BUN 29 H Creatinine 1.70 H Glucose 338 H Calcium 9.4 - Impressions Impressions Fluoroscopy 06/14/18 16:48 IMPRESSION: Intraprocedural fluoroscopic spot images as above. See separate procedure report for more information. D/ / Tor Pandya MD / Tor Pandya MD Interpreting Provider: Tor Pandya MD X-Ray 06/14/18 16:48 IMPRESSION: Intraprocedural fluoroscopic spot images as above. See separate procedure report for more information. D/ / Tor Pandya MD / Tor Pandya MD Interpreting Provider: Tor Pandya MD Consult Discharge Plan - Plan Referrals: Hector Birmingham DO [Partnered Physician] - 06/21/18 1:00 pm (6) HLD (hyperlipidemia) Qualifiers: Hyperlipidemia type: unspecified Qualified Code(s): E78.5 - Hyperlipidemia, unspecified
[2018-06-15] MEDS: *HR* OxyCODONE/APAP 5/325 TABLET PO PRN ×2 (14:07→21:35)
[2018-06-15] MEDS ORDERED: Dextrose Gel 15 GM/37.5 ML TUBE PO PRN ×2 (14:15)
[2018-06-15] MEDS ORDERED: D5% in Water 1,000 ML IVC PRN (14:15)
[2018-06-15] MEDS ORDERED: *HR* Dextrose 50 % in Water (Syg) 50 ML SYRINGE IVP PRN (14:15)
[2018-06-15] MEDS: Insulin LISPRO 300 UNITS/3 ML VIAL SQ SCH ×2 (17:25→21:29)
[2018-06-16] MEDS: *HR* Enoxaparin 40 MG/0.4 ML SYRINGE SQ SCH (04:24)
[2018-06-16 04:31] LABS: Basophils # 0.1 K/mcL (0.0-0.2); Basophils % 0.3 %; Eosinophils # 0.1 K/mcL (0.0-0.6); Eosinophils % 0.3 %; Hemoglobin 14.6 g/dL (12.9-16.9); Immature Granulocytes % 0.4 % (0-4); Lymphocytes # 2.5 K/mcL (0.6-4.6); Lymphocytes % 16.1 %; Mean Corpuscular HGB Conc 34.8 g/dL (31.6-35.5); Mean Corpuscular Hemoglobin 32.1 pg (28.0-33.3); Mean Corpuscular Volume 92.3 fL (83.0-100.0); Mean Platelet Volume 10.9 fL (9.4-12.4); Monocytes # 1.5 K/mcL (0.0-1.3); Monocytes % 9.9 %; Neutrophils # 11.1 K/mcL (1.6-8.9); Platelet Count 259 K/mcL (140-400); Red Blood Count 4.55 M/mcL (4.19-5.50)
[2018-06-16 04:53] LABS: Calcium 9.5 mg/dL (8.6-10.3); Potassium 4.2 mEq/L (3.5-5.1)
[2018-06-16] MEDS ORDERED: Ringers Solution, Lactated 1,000 ML IVC SCH (08:00)
[2018-06-16] MEDS: Insulin LISPRO 300 UNITS/3 ML VIAL SQ SCH ×4 (08:25→21:20)
[2018-06-16] MEDS: *HR* OxyCODONE/APAP 5/325 TABLET PO PRN ×2 (08:31→20:39)
[2018-06-16] MEDS: amLODIPine 5 MG TABLET PO SCH (08:31)
[2018-06-16] MEDS: hydrALAZINE 25 MG TABLET PO SCH ×2 (08:32→16:06)
[2018-06-16] MEDS: Nicotine 21 MG PATCH.TD24 TD SCH (08:43)
[2018-06-16] MEDS: Ondansetron 4 MG/2 ML VIAL IVP PRN (09:10)
[2018-06-16] MEDS ORDERED: OXYCODONE Oral CONC 10 MG/0.5 ML ORAL.SYG SL ONE (09:25)
--- NOTE | 2018-06-16 10:21 | Internal Med Progress Note ---
Hospitalist Progress Note - Encounter Date of Encounter: 06/16/18 Time of Encounter: 10:21 - Subjective Interval History: 57 M admitted for HTN emergency with EDGARDO and elevated troponin Incidental finding of obstructive uropathy on admission Seen and examined at the bedside POD 2 s/p stone extraction by Patient said to have complained of intense pain this a.m, which improved with medication, he states he passed a stone this a.m prior to the intense pain A1C is 6.4 Blood pressure is improving repeat CT shows stent in place with no acute finding - Exam Vitals: Temp Pulse Resp BP Pulse Ox 98.3 F 87 18 163/102 97 06/16/18 07:44 06/16/18 07:44 06/16/18 07:44 06/16/18 07:44 06/16/18 08:44 Exam: Gen.: No acute distress, alert and oriented 3 ENT: Mucosal membranes moist Respiratory: Lungs are clear to auscultation bilaterally without any wheezing rhonchi or rales Cardiovascular: Normal S1 and S2 regular rate rhythm no murmurs rubs or gallops Abdomen: Soft, non-tender and non-distended with positive bowel sounds Extremities: No lower extremity edema Neuro: AAOX3, no speech deficits, no facial paralysis, moves all limbs spontaneously Skin: No rash/jaundice - Assessment and Plan (1) EDGARDO (acute kidney injury) Current Visit: Yes Status: Acute Assessment and Plan: Pre-renal and post-renal Due to Uncontrolled HTN and L obstructing uropathy Continue IVF Rpt Chem a.m (2) Elevated troponin Current Visit: Yes Status: Acute Assessment and Plan: Likely due to demand from HTN emergency Trop 0.06 X3, no EKG changes Discontinue ASA Continue Lipitor ECHO showed LVEF 60%,LVH, o valvular dysfunction and normal wall segments Continue BP control (3) Hydronephrosis, left Current Visit: Yes Status: Acute Assessment and Plan: Patient seen by urologist POD 2 s/p stone extraction Patient's pain is controlled Contnue pain control Rpt abd CT noted (4) Hypertensive emergency Current Visit: Yes Status: Acute Assessment and Plan: Improving Presented with SBP >200, DBP >130 with EDGARDO and elevated troponin Continue Norvasc and Metoprolol Add hydralazine po Patient will need PCP established prior to discharge, continue to monitor (5) Ureteral calculus, left Current Visit: Yes Status: Acute Assessment and Plan: POD 2 lithotripsy Continue to monitor (6) HLD (hyperlipidemia) Current Visit: Yes Status: Chronic Assessment and Plan: Continue lipitor (7) Tobacco abuse Current Visit: Yes Status: Chronic Assessment and Plan: cessation counselling , declined NRT (8) Hypokalemia Current Visit: Yes Status: Resolved Assessment and Plan: Resolved (9) Hyperglycemia Current Visit: Yes Status: Acute Assessment and Plan: A1C 6.4 Sliding scale insulin Lifestyle modification encouraged - Time Spent with Patient Total time spent is greater than 50% in coordination of care (as documented) at patient's floor/unit and/or counseling patient: Plan of Care Discussed with: patient Internal Medicine: Result - Labs CBC & Chem 7: 06/16/18 04:14 06/16/18 04:14 Labs: Short CBC 06/16/18 Range/Units 04:14 WBC 15.2 H D (4.3-11.1) K/mcL Hgb 14.6 (12.9-16.9) g/dL Hct 42.0 (37.5-50.1) % Plt Count 259 (140-400) K/mcL Neutrophils # 11.1 H (1.6-8.9) K/mcL BMP 06/16/18 04:14 Sodium 134 L Potassium 4.2 Chloride 108 H Carbon Dioxide 22 L BUN 26 H Creatinine 1.64 H Glucose 151 H Calcium 9.5 Consult Discharge Plan - Plan Referrals: Hector Birmingham DO [Partnered Physician] - 06/21/18 1:00 pm (6) HLD (hyperlipidemia) Qualifiers: Hyperlipidemia type: unspecified Qualified Code(s): E78.5 - Hyperlipidemia, unspecified
[2018-06-17] MEDS: hydrALAZINE 25 MG TABLET PO SCH ×2 (00:15→07:31)
[2018-06-17] MEDS: *HR* Enoxaparin 40 MG/0.4 ML SYRINGE SQ SCH (06:05)
[2018-06-17] MEDS: amLODIPine 5 MG TABLET PO SCH (07:31)
[2018-06-17] MEDS: Nicotine 21 MG PATCH.TD24 TD SCH (07:32)
[2018-06-17] MEDS: Insulin LISPRO 300 UNITS/3 ML VIAL SQ SCH (07:33)
[2018-06-17 08:02] LABS: Calcium 9.4 mg/dL (8.6-10.3); Potassium 4.1 mEq/L (3.5-5.1)
--- NOTE | 2018-06-17 09:46 | Discharge Summary ---
- NOTES TO OUTPATIENT PROVIDER Notes to Outpatient Provider: Patient was admitted for HTN emegrgency with L obstructing calculus with associated hydronephrosis, he also had pre-diabetes, as well as elevated troponin. Kidney funciton is mildy improved and blood presure is now controlled, he has had stone extraction and stent placement by urology. ECHO is normal without any valvular findings, urine is becoming clear. Patient is discharged home on antihypertensives and pain control. Chem scheduled for 06/20, he has an appointment with PCP on 06/21. Tobacco cessation encouraged. Orders not resulted at time of discharge: Pending orders 06/12/18 10:44 Calculi (stone) Analysis Routine 06/14/18 17:13 Surgical Pathology [PTH] Routine 06/18/18 04:00 Chem 7 [Basic Metabolic Panel] AM 0400 Date of Encounter: 06/17/18 Time of Encounter: 09:43 - Discharge Diagnosis (1) EDGARDO (acute kidney injury) Priority: Primary Status: Acute (2) Elevated troponin Priority: Primary Status: Acute (3) Hydronephrosis, left Priority: Primary Status: Acute (4) Hypertensive emergency Priority: Primary Status: Acute (5) Ureteral calculus, left Priority: Primary Status: Acute (6) HLD (hyperlipidemia) Priority: Secondary Status: Chronic Qualifiers: Hyperlipidemia type: unspecified Qualified Code(s): E78.5 - Hyperlipidemia , unspecified (7) Tobacco abuse Priority: Secondary Status: Chronic (8) Hypokalemia Priority: Primary Status: Resolved (9) Hyperglycemia Priority: Primary Status: Acute (10) Pre-diabetes Priority: Primary Status: Chronic Hospital course: Mr. Gomez is a 57 year old male who before admission was not following with PCP, nor taking any meds He presented to the ER with severe L flank pain and chest pain and was found to be in HTN emergency associated with James elevated troponin. Abdomen and Pelvis imaging showed Left obstructing calculus with L hydronephrosis. He also had hyperglycemia, with A1C confirming pre-dm. A1C was 6.4 He does have a heavy tobacco use hx of Lipid panel showed hyperlipidemia He was managed with IV labetalol, hydralazine and transitioned to oral metoprolol, amlodipine and hydralazine. Renal function initially improved but worsened post-stent placement and stone extraction. He received IVF boluses with minimal improvement. Repeat Abd CT on showed stent in place with no hydronephrosis Patient was seen and evaluated at bedside this a.m, he had no new complains, he is ambulatory and reports his hematuria is resolving, his renal function is still abnormal but improving He has an appointment with hos PCP 06/21 We have scheduled a renal function test for 06/20 and follow up recommended with PCP Patient educated about diagnoses, lifestyle modification , tobacco cessation and compliance with medications, verbalized understanding Discharged in clinically stable condition Discharge discussed with: patient, nurse Time spent discussing smoking cessation with patient: 3 to 10 minutes - Time Spent with Patient Total time spent providing and/or coordinating discharge services: Less than 30 minutes - Discharge Medications Prescriptions: OxyCODONE/APAP 5/325 [Percocet 5/325 MG] 1 each PO Q6HR PRN 6 Days #12 tablet PRN Reason: Pain hydrALAZINE [HydrALAZINE] 25 mg PO Q8HR #90 tablet Amlodipine Besylate 10 mg PO DAILY #30 tablet Atorvastatin [Lipitor] 40 mg PO HS #30 tablet Metoprolol [Lopressor] 50 mg PO BID #60 tablet Home Medications: Aspirin/Acetaminophen/Caffeine [Excedrin Extra Strength Caplet] 2 tab PO DAILY PRN 06/12/18 [History] Amlodipine Besylate 10 mg PO DAILY #30 tablet 06/17/18 [Rx] Atorvastatin [Lipitor] 40 mg PO HS #30 tablet 06/17/18 [Rx] Metoprolol [Lopressor] 50 mg PO BID #60 tablet 06/17/18 [Rx] Nicotine Patch [Nicoderm] 21 mg TD DAILY patch.td24 06/17/18 [Rx] OxyCODONE/APAP 5/325 [Percocet 5/325 MG] 1 each PO Q6HR PRN 6 Days #12 tablet [Rx] hydrALAZINE [HydrALAZINE] 25 mg PO Q8HR #90 tablet 06/17/18 [Rx] Allergies/Adverse Reactions: 3 Allergy/AdvReac Type Severity Reaction Status Date / Time ketorolac [From Toradol] Allergy Nausea Verified 06/12/18 16:09 Penicillins Allergy Hives Verified 06/12/18 16:09 sulfamethoxazole AdvReac Anaphylaxis Verified 06/12/18 16:09 [From Bactrim] trimethoprim [From Bactrim] AdvReac Anaphylaxis Verified 06/12/18 16:09 Date of admission: 06/12/18 21:21 Primary care physician: PCP NONE Consults: 06/12/18 21:25 Consult to Urology [CONS] Routine Consulting Provider: Marcus Trotter Reason for Consult: kidney stone Time Notified: 21:25 Call Completed: No Discharging clinician: Tai Meza Anticipated date of discharge: 06/17/18 - Constitutional Vitals: Temp Pulse Resp BP Pulse Ox 98.4 F 61 16 144/81 96 06/17/18 07:34 06/17/18 07:34 06/17/18 07:34 06/17/18 07:34 06/17/18 07:34 General appearance: Present: A&O X 3, pleasant, no acute distress Exam: see below - Head Head exam: Present: atraumatic, normocephalic - Eye Eye exam: Present: PERRL, conjuntiva pink, sclera anicteric Pupils: Present: PERRL - Neck Neck exam general surgery: Present: supple, trachea midline. Absent: lymphadenopathy - Respiratory Respiratory exam: Present: CTAB. Absent: accessory muscle use, rales, rhonchi, wheezes - Cardiovascular Cardiovascular exam: Present: RRR, +S1, +S2. Absent: diastolic murmur, gallop, rubs, systolic murmur - GI/Abdominal GI/Abdominal exam: Present: normal bowel sounds, soft, no peritoneal signs. Absent: distended, tenderness - Extremities Exam Extremities exam: Present: warm, radial pulses palpable and symmetrical. Absent : calf tenderness, cyanotic, pedal edema - Neurological Exam Neurological exam: Present: CN II-XII intact, oriented X3, no focal deficits. Absent: pronater drift, facial droop, speech deficit - Skin Skin exam: Present: dry, intact - Patient Status Disposition: Home, Self-Care Condition: Good Functional capacity at discharge: independent ambulation Overall status at discharge: patient is progressing back to baseline - Discharge Instructions Instructions: Metoprolol (By mouth), Oxycodone/Acetaminophen (By mouth), Hydralazine (By mouth), Amlodipine (By mouth), Atorvastatin (By mouth) Follow Up With: Hector Birmingham DO [Partnered Physician] - 06/21/18 1:00 pm - Diet and Activity Activity: resume usual activities as tolerated Diet: low salt diet
[2018-06-17 11:58] VITALS: BP 138/80
== END 2018-06-17 12:56 | disposition home or self-care (01) | DRG 669 ==
LOC: 2NNU 15:52 → EMEROOARM 15:52 → 2NNU 20:43 → SUATTDRO 21:21 → 2ANU 06-15 15:21
PROVIDERS: ADMIT Internal Medicine Cardiovascular Disease; ATTEND Internal Medicine